=== PATIENT | male | born 1955 | race Caucasian/White ===

== ENCOUNTER 2019-06-07 05:07 | Emergency (ER) | payer SELFPAY ==
[2019-06-07] MEDS ORDERED: ONDANSETRON HCL INJ/PF 4 MG/2 ML SDV IV ONE (05:51)
[2019-06-07] MEDS ORDERED: NORMAL SALINE 1000 ML 1,000 ML IV ONE (05:52)
[2019-06-07] MEDS ORDERED: MORPHINE SULFATE 10 MG/ML INJ IV ONE (05:52)
--- NOTE | 2019-06-07 05:55 | ER Document Report ---
ED GI/ - General Chief Complaint: Abdominal Pain Stated Complaint: ABDOMINAL PAIN Time Seen by Provider: 06/07/19 05:40 Notes: Patient is a 63-year-old male that comes to the emergency department for chief complaint of sharp pain in the lower abdomen generally on both sides. This started last , he states this has been progressive and more frequent, he states he has developed nausea and he is eating less as well. He states he has had several loose stools a day, about 3-4 daily, he states he saw trace blood in the stool as well. He states symptoms started initially after eating a hamburger on . He denies recent antibiotics, obvious raw food, foreign travel. He denies any surgeries or daily medications. He does not have a primary care provider and is here for work (lives in [place]). He denies smoking, drinks alcohol occasionally, denies recreational drugs. He has never had a colonoscopy. He denies any other sympotms including fever, cough, shortness of breath, chest pain. - Related Data Allergies/Adverse Reactions: No Known Allergies Allergy (Unverified 06/07/19 06:28) Past Medical History - General Information source: Patient - Social History Smoking Status: Never Smoker Frequency of alcohol use: Occasional Drug Abuse: None Lives with: Family Family History: Reviewed & Not Pertinent Surgical Hx: Negative Review of Systems - Review of Systems Constitutional: No symptoms reported EENT: No symptoms reported Cardiovascular: No symptoms reported Respiratory: No symptoms reported Gastrointestinal: See HPI Genitourinary: No symptoms reported Male Genitourinary: No symptoms reported Musculoskeletal: No symptoms reported Skin: No symptoms reported Hematologic/Lymphatic: No symptoms reported Neurological/Psychological: No symptoms reported Physical Exam - Vital signs Vitals: Temp Pulse Resp BP Pulse Ox 99.2 F 84 16 131/85 H 96 06/07/19 05:44 06/07/19 05:44 06/07/19 05:44 06/07/19 05:44 06/07/19 05:44 - Notes Notes: GENERAL: Alert, interacts well. No acute distress. HEAD: Normocephalic, atraumatic. EYES: Pupils equal, round, and reactive to light. Extraocular movements intact. ENT: Oral mucosa moist, tongue midline. Oropharynx unremarkable. Airway patent. LUNGS: Clear to auscultation bilaterally, no wheezes, rales, or rhonchi. No respiratory distress. Non-tender chest wall. HEART: Regular rate and rhythm. No murmur ABDOMEN: Patient with tenderness on palpation and grimacing with palpation of the general lower abdomen on both sides. Upper abdomen is benign. Bowel sounds are present. No rigidity or distention noted. GENITOURINARY: Deferred EXTREMITIES: Moves all 4 extremities spontaneously. No edema, normal radial and dorsalis pedis pulses bilaterally. No cyanosis. BACK: no cervical, thoracic, lumbar midline tenderness. No saddle anesthesia, normal distal neurovascular exam. Moves all extremities in full range of motion. NEUROLOGICAL: Alert and oriented x3. Normal speech. Cranial nerves II through XII grossly intact. Strength 5/5 in all extremities. PSYCH: Normal affect, normal mood. SKIN: Warm, dry, normal turgor. No rashes or lesions noted. Course - Re-evaluation Re-evalutation: Patient has some generalized tenderness of the mid to lower abdomen but no guarding. He is talkative and well-appearing. Vital signs unremarkable. CBC shows mild leukocytosis at 12.9 with elevation of lymphocytes, unremarkable otherwise. Chemistry unremarkable except for mild hypokalemia. CT of the abdomen pelvis was performed because of patient's age and symptoms to rule out concerning infection. This was normal. On reevaluation patient is asymptomatic. He is not vomiting and he is tolerating p.o. without any difficulty. He received IV fluids. Potassium supplemented. Discussed at [facility] with patient. Based on the lab work this appears to be viral, this is my highest suspicion, based on his evaluation I have low suspicion of acute abdomen. Patient has not provided a urine sample but he denies any history of prostate enlargement, any history of urinary symptoms or urinary difficulty ever, any history of UTI, he is requesting to go home. Patient was provided with symptom relief for home, discussed recommendations, follow-up, return precautions. Patient states appreciation and agreement. Stable and well- appearing at time of discharge. - Vital Signs Vital signs: Temp Pulse Resp BP Pulse Ox 99.2 F 84 16 131/85 H 96 06/07/19 05:44 06/07/19 05:44 06/07/19 05:44 06/07/19 05:44 06/07/19 05:44 - Laboratory Result Diagrams: 06/07/19 06:05 06/07/19 06:05 Laboratory results interpreted by me: 06/07/19 06/07/19 06:05 06:05 WBC 12.9 H Absolute Lymphs (auto) 4.8 H Sodium 134.7 L Potassium 3.2 L Glucose 124 H Discharge - Discharge Clinical Impression: Nausea Abdominal pain Qualifiers: Abdominal location: generalized Qualified Code(s): R10.84 - Generalized abdom inal pain Diarrhea Qualifiers: Diarrhea type: unspecified type Qualified Code(s): R19.7 - Diarrhea, unspecified Condition: Stable Disposition: HOME, SELF-CARE Instructions: Oral Narcotic Medication ([facility]) Additional Instructions: Your imaging does not show any concerning findings, your laboratory work-up suggests a viral cause. This should simply resolve with time. Take the Zofran for nausea, only take the pain medication if needed, drink plenty of fluids, rest. I recommend [id number] probiotics. Your potassium was slightly low today, increase this in your diet, have this rechecked with primary care. I recommend that you start with bland food and slowly progress. Follow-up with primary care. Return if you worsen including severe abdominal pain, vomiting, fever, or any other concerning or worsening symptoms. Prescriptions: Ondansetron [Zofran Odt 4 mg Tablet] 1 - 2 tab PO Q4H PRN #15 tab.rapdis PRN Reason: For Nausea/Vomiting Forms: Return to Work
[2019-06-07 06:31] LABS: ABSOLUTE BASOPHILS # (AUTO) 0.1 10^3/uL (0.0-0.2); ABSOLUTE EOSINOPHILS # (AUTO) 0.1 10^3/uL (0.0-0.6); ABSOLUTE LYMPHOCYTES (AUTO) 4.8 10^3/uL (0.5-4.7); ABSOLUTE MONOCYTES (AUTO) 1.3 10^3/uL (0.1-1.4); ABSOLUTE NEUT (AUTO) 6.7 10^3/uL (1.7-8.2); BASOPHILS % (AUTO) 1.1 % (0-2); EOSINOPHILS % (AUTO) 0.5 % (0-6); HEMATOCRIT 43.3 % (37.9-51.0); HEMOGLOBIN 15.3 g/dL (13.5-17.0); MEAN CORPUSCULAR HEMOGLOBIN 29.6 pg (27.0-33.4); MEAN CORPUSCULAR HGB CONC 35.2 g/dL (32.0-36.0); MEAN CORPUSCULAR VOLUME 84 fl (80-97); MONOCYTES % (AUTO) 10.1 % (3-13); PLATELET COUNT 297 10^3/uL (150-450); RED BLOOD COUNT 5.16 10^6/uL (4.35-5.55); RED CELL DISTRIBUTION WIDTH 13.2 % (11.5-14.0); SEGMENTED NEUTROPHILS % (AUTO) 51.3 % (42-78); TOTAL CELLS COUNTED % (AUTO) 100 %; WHITE BLOOD COUNT 12.9 10^3/uL (4.0-10.5)
[2019-06-07 06:43] LABS: ALBUMIN 4.1 g/dL (3.5-5.0); ALKALINE PHOSPHATASE 64 U/L (38-126); ANION GAP 8 (5-19); ASPARTATE AMINO TRANSFERASE 23 U/L (17-59); BILIRUBIN,TOTAL 0.8 mg/dL (0.2-1.3); BLOOD UREA NITROGEN 10 mg/dL (7-20); CALCIUM 9.2 mg/dL (8.4-10.2); CARBON DIOXIDE 26 mmol/L (22-30); CHLORIDE 101 mmol/L (98-107); GLUCOSE 124 mg/dL (75-110); POTASSIUM 3.2 mmol/L (3.6-5.0); TOTAL PROTEIN 7.1 g/dL (6.3-8.2)
--- NOTE | 2019-06-07 07:38 | RADIOLOGY REPORT (SQ) ---
EXAM DESCRIPTION: CT ABDOMEN PELVIS WITH IV CONTRAST COMPLETED DATE/TME: 06/07/2019 05:51 CLINICAL HISTORY: 63 years, Male, sharp worsening lower abd pain, nausea COMPARISON: None. TECHNIQUE: Axial CT images of the abdomen and pelvis were obtained after the demonstration of IV contrast. Sagittal and coronal reformats were performed. [facility] [id number] Images stored on PACS. All CT scanners at this facility use dose modulation, iterative reconstruction, and/or weight based dosing when appropriate to reduce radiation dose to as low as reasonably achievable (ALARA). [facility]: Dose Right [facility]: CareDose [facility]: Dose Right [facility]: Teradose 4D [facility]: [employer] LIMITATIONS: None. FINDINGS: The lung bases are clear. The liver, gallbladder, pancreas, spleen, and adrenal glands are unremarkable. Both kidneys enhance normally. No evidence of hydronephrosis or hydroureter bilaterally. There is no intraperitoneal free air or fluid. There is no lymphadenopathy. The abdominal aorta is normal in caliber. The stomach and small bowel are unremarkable. The appendix is not uniquely identified, however there are no pericecal inflammatory changes. Contrast is noted within the colon. No evidence of diverticulitis. The urinary bladder and prostate gland are unremarkable. There are no lytic or blastic bone lesions. IMPRESSION: No acute findings within the abdomen or pelvis. TECHNICAL DOCUMENTATION: Quality ID # [id number]: Final reports with documentation of one or more dose reduction techniques (e.g., Automated exposure control, adjustment of the mA and/or kV according to patient size, use of iterative reconstruction technique) copyright 2011 [employer]- All Rights Reserved
[2019-06-07] MEDS ORDERED: POTASSIUM CHLORIDE 10 MEQ TABLET.ER PO ONE (07:49)
[2019-06-07] MEDS ORDERED: HYDROCODONE/ACETAMINOPHEN 5-325 MG (6 TAB/ER DISP) PO PRN (07:49)
[2019-06-07] MEDS ORDERED: ONDANSETRON ODT 4 MG TAB (6 TAB/ER DISP) PO PRN (07:49)
[2019-06-07 09:53] VITALS: BP 127/78
== END 2019-06-07 09:50 | disposition home or self-care (01) ==
LOC: ER 05:07
DX: R10.84 Generalized abdominal pain (principal); R10.819 Abdominal tenderness, unspecified site; R19.7 Diarrhea, unspecified; R11.0 Nausea; K92.1 Melena; D72.829 Elevated white blood cell count, unspecified; E87.6 Hypokalemia
CPT/HCPCS: 99284; 96361; 96374; 96375; 36415; 83690; 85025; 80053; 74177; J2270; J2405; J7030